=== PATIENT | female | born 1950 | race Hispanic/Latino ===

== ENCOUNTER 2018-05-01 21:07 | Emergency (ER) | payer MEDICARE ==
[~2018-05-01 21:07] MED LIST: AEC81 PO; AMLO5TAB7 PO; BUTA-256 PO; CALC-1009 PO; CHLO500T3 PO; CYAN100084 PO; FOLI-74 PO; FOLI1TAB15 PO; METO50TA9 PO; PHEN300C6 PO; SIMV20TA6 PO
[2018-05-01] MEDS ORDERED: MORPHINE SULFATE 4 MG/1ML SYG ONE (22:36)
[2018-05-01] MEDS ORDERED: ONDANSETRON HCL 4 MG/2 ML VIAL ONE (22:36)
[2018-05-01] MEDS ORDERED: KETAMINE HCL 100 MG/ML 5ML VIAL IJ ONE (23:56)
[2018-05-02] MEDS ORDERED: MORPHINE SULFATE 4 MG/1ML SYG ONE
[2018-05-02] MEDS ORDERED: LORAZEPAM 2 MG/ML 1 ML VIAL ONE (00:01)
== END 2018-05-02 02:04 | disposition home or self-care (01) ==
LOC: EDH 21:07
DX: S52.511A Displaced fracture of right radial styloid process, initial encounter for closed fracture (principal); W18.39XA Other fall on same level, initial encounter; Y93.89 Activity, other specified; Y92.89 Other specified places as the place of occurrence of the external cause; Y99.8 Other external cause status
CPT/HCPCS: 25605; 73110 ×2; 96374; 96375; 99152; 99153; 99285; J2060; J2270 ×2; J2405; J3490

== ENCOUNTER → 2019-05-04 | Outpatient (CLI) | payer MEDICARE ==
[~2019-05-04] MED LIST changes: -AMLO5TAB7 PO; +AMLO5TAB9 PO; +SIMV-43 PO; -SIMV20TA6 PO
== END | disposition home or self-care (01) ==
LOC: RAH 10:36
PROVIDERS: ATTEND Physical Medicine & Rehabilitation
DX: M41.9 Scoliosis, unspecified (principal)
CPT/HCPCS: 72082

== ENCOUNTER → 2020-06-09 | Outpatient (CLI) | payer MEDICARE ==
[~2020-06-09] MED LIST changes: +AMLO-257 PO; -AMLO5TAB9 PO
== END | disposition home or self-care (01) ==
LOC: RAH 12:19
PROVIDERS: ATTEND Physical Medicine & Rehabilitation
DX: M51.37 Other intervertebral disc degeneration, lumbosacral region (principal); M51.36 Other intervertebral disc degeneration, lumbar region; M41.85 Other forms of scoliosis, thoracolumbar region; M47.816 Spondylosis without myelopathy or radiculopathy, lumbar region; M48.061 Spinal stenosis, lumbar region without neurogenic claudication; M48.07 Spinal stenosis, lumbosacral region
CPT/HCPCS: 72131

== ENCOUNTER → 2020-10-12 | Outpatient (CLI) | payer MEDICARE | END | disposition home or self-care (01) | LOC: OIH 10:13 | PROVIDERS: ATTEND Physical Medicine & Rehabilitation | DX: M50.123 Cervical disc disorder at C6-C7 level with radiculopathy (principal); M48.02 Spinal stenosis, cervical region | CPT/HCPCS: 72040 ==

== ENCOUNTER → 2024-06-30 | Outpatient (CLI) | payer OTHER, MEDICARE ==
--- NOTE | 2024-07-01 09:20 | HMCIMG ---
Exam Type: CHEST 1VW Clinical Information: HTN Comparison: None Findings: The lungs are clear of infiltrates. The heart is enlarged in size. The bony and soft tissue structures of the chest are unremarkable. Right cardiac pacemaker is noted with leads in place. Impression: Clear lungs.
== END | disposition home or self-care (01) ==
LOC: OIH 15:38
PROVIDERS: ATTEND Internal Medicine
DX: I11.9 Hypertensive heart disease without heart failure (principal)
CPT/HCPCS: 71045; 71046